=== PATIENT | female | born 1965 | race Asian ===

== ENCOUNTER → 2018-11-29 13:09 | Outpatient (REF) | payer BC, SELFPAY | LOC: LAB 13:09 | PROVIDERS: Visit Provider Family Medicine | DX: R50.9 Fever, unspecified (principal); R05 Cough | CPT/HCPCS: 87400 ==

== ENCOUNTER → 2020-11-23 11:28 | Outpatient (CLI) | payer BC, SELFPAY ==
--- NOTE | 2020-11-23 | DI.RAD.S_ITS ---
PROCEDURE: XR ELBOW LT MIN 3V INDICATIONS: LEFT ELBOW PAIN, TENDONITIS, EPICONDYLE TECHNIQUE: 3 views of the elbow were acquired. COMPARISON: None. FINDINGS: Bones: No fractures or dislocations. No suspicious bony lesions. Soft tissues: No elbow joint effusion. No suspicious soft tissue calcifications. IMPRESSION: No trauma found. Dictated by: Tim Man M.D. on 11/23/2020 at 12:50 Approved by: Tim Man M.D. on 11/23/2020 at 12:50
== END ==
PROVIDERS: PCP Family Medicine; Referring Provider Family Medicine; Visit Provider Family Medicine
DX: M25.522 Pain in left elbow (principal); M77.12 Lateral epicondylitis, left elbow
CPT/HCPCS: 73080

== ENCOUNTER → 2020-12-04 10:47 | Outpatient (CLI) | payer BC, SELFPAY ==
--- NOTE | 2020-12-04 10:50 | DI.MG.S_ITS ---
BILATERAL DIGITAL SCREENING MAMMOGRAM 3D/2D WITH CAD: 12/04/2020 CLINICAL: Routine screening. Comparison is made to exams dated: 01/28/2018 mammogram, 10/10/2016 mammogram, and 12/24/2010 mammogram - [facility]. The tissue of both breasts is extremely dense, which lowers the sensitivity of mammography. Current study was also evaluated with a Computer Aided Detection (CAD) system. No significant masses, calcifications, or other findings are seen in either breast. There has been no significant interval change. IMPRESSION: NEGATIVE There is no mammographic evidence of malignancy. A 1 year screening mammogram is recommended. This exam was interpreted at Station ID: [id number]. NOTE: For mammograms, a report in lay terms will be sent to the patient. Approximately 15% of breast malignancies will not be visualized mammographically. In the management of a palpable breast mass, a negative mammogram must not discourage biopsy of a clinically suspicious lesion. Electronically Signed By: Gustavo Renner acr/penrad:12/04/2020 11:54:02 letter sent: Normal Exam ACR BI-RADS Category 1: Negative [id number]
== END ==
PROVIDERS: PCP Family Medicine; Referring Provider Family Medicine; Visit Provider Family Medicine
DX: Z12.31 Encounter for screening mammogram for malignant neoplasm of breast (principal)
CPT/HCPCS: 77063; 77067

== ENCOUNTER 2021-11-01 19:15 | Observation (INO) | payer BC, SELFPAY ==
[2021-11-01 19:18] VITALS: BP 123/78; PULSE 78; RESP 14; TEMP 36.6; O2SAT 99; BMI 17.2
--- NOTE | 2021-11-01 19:37 | DI.RAD.S_ITS ---
PROCEDURE: XR SOFT TISSUE NECK INDICATIONS: possible esophageal foreign body TECHNIQUE: 2 views of the neck were acquired. COMPARISON: None. FINDINGS: Airway: The airway appears patent. Soft tissues: Prevertebral soft tissues are normal in thickness. The epiglottis and aryepiglottic folds appear normal. No soft tissue gas. Bones: No suspicious bony lesions. Visualized cervical spine is normally aligned. IMPRESSION: No radiopaque foreign body. Dictated by: Neeta Schaffer M.D. on 11/01/2021 at 19:59 Approved by: Neeta Schaffer M.D. on 11/01/2021 at 19:59
--- NOTE | 2021-11-01 20:14 | ED.RECABL ---
HPI - Recheck/Abnormal Lab/Rx General Chief Complaint: Recheck/Abnormal Lab/Rx Stated Complaint: food stuck in throat Time Seen by Provider: 11/01/21 19:37 Source: patient Mode of arrival: Ambulatory History of Present Illness HPI narrative: Female nonsmoker with noncontributory medical history presents with family in the chief complaint of suspicion of an esophageal foreign body. She was eating a meal few hours prior to her arrival and felt some green pepper get stuck in her throat. She has not been able to swallow or keep anything down since. She has vomited a few times but has not cleared the suspected foreign body. She did have some blood-tinged emesis on her last round. She denies any chest pain or shortness of breath. She has had no fever or chills. She is not dizzy nor weak or lightheaded. She denies any history of the same. Related Data Previous Rx's Medication Instructions Recorded [id number] 2 1 spray MUCOUS MEMBRANE .QID prn 11/02/21 %-2 %-14 % (200 mg/sec) topical #20 g spray (Cetacaine) Allergies Allergy/AdvReac Type Severity Reaction Status Date / Time shrimp Allergy Intermediate Anaphylaxis Verified 11/02/21 08:32 Review of Systems Review of Systems Narrative: GENERAL: Denies chills, fatigue, malaise, fever, sweats. HEENT: Denies sinus pain, ear pain, sore throat, difficulty swallowing, dizziness. RESPIRATORY: Denies dyspnea, cough, wheezing, hemoptysis, sputum. CARDIOVASCULAR: Denies chest pain, palpitations, orthopnea, edema, GASTROINTESTINAL: Denies nausea, vomiting, abdominal pain, diarrhea, constipation, melena. : Denies dysuria, frequency, incontinence, hematuria, urinary retention. MUSCULOSKELETAL: denies weakness, joint pain, or bony pain SKIN: Denies rash, skin lesions, or other NEUROLOGIC: Denies weakness, headache, numbness, change in speech, confusion, seizures, incoordination. PSYCHIATRIC: No concerning psychosocial issues. 12 point review of systems is negative except for those stated above Patient History Social History household members: spouse and children Smoking Status: Never smoker alcohol intake: never Smoking Status: Never smoker alcohol intake frequency: 0-2 drinks per day Substance Use Type: does not use Exam Narrative Exam Narrative: GEN: AOx3 and in mild distress EYES: Pupils are equal, round, and reactive to light and accommodation. Extraoccular muscles are intact bilaterally. There is no subconjunctival hemorrhage or exudate. ENT: Airway patent, no obvious foreign body or bleeding CHEST: Lungs are clear to auscultation bilaterally and free of wheezes, rales, or rhonchi. Heart rate is regular rhythm, there are no murmurs, clicks, rubs, or gallops. There is no chest wall tenderness. ABD: Abdomen is soft and nontender. There is no guarding or rebound. Bowel sounds are normal in all 4 quadrants. There is no mass or organomegaly. EXT: Full painless ROM of all extremities with no loss of sensation or strength. SKIN: Warm, pink, and dry. No erythema or rash Initial Vital Signs Initial Vital Signs: Vital Signs Temperature 97.9 F 11/01/21 19:18 Pulse Rate 78 11/01/21 19:18 Respiratory Rate 14 11/01/21 19:18 Blood Pressure 123/78 11/01/21 19:18 Pulse Oximetry 99 11/01/21 19:18 Course Course Course Narrative: Patient given glucagon, closely followed by shobha rudd and immediately began vomiting, at this point a call was placed to general surgery to discuss endoscopy. Patient admitted under their name Orders Ordered: Discontinued Medications Benzocaine (Dermoplast [place] 20% 60 Ml) 1 spray TOP Q30MIN PRN PRN Reason: Pain, Moderate (4-6) Benzocaine/Butamben/Tetracaine HCl (Tetracaine/Benzocaine/Butamben (Cetacaine) Bottle) 1 spray TOP Q30MIN PRN PRN Reason: Sore Throat Last Admin: 11/02/21 01:53 Dose: 1 spray Documented by: MARCELINO Diazepam (Diazepam 10 Mg/2 Ml Syringe) 2 mg IV Q4HR PRN PRN Reason: Anxiety Last Admin: 11/02/21 01:54 Dose: 2 mg Documented by: MARCELINO Fentanyl (Fentanyl 100 Mcg/2 Ml Inj) 0 mcg IV Q5MIN PRN PRN Reason: Pain, Moderate (4-6) Glucagon (Glucagon,Human Recombinant 1 Mg/Ml Vial) 1 mg IV NOW ONE Stop: 11/01/21 19:38 Last Admin: 11/01/21 20:21 Dose: 1 mg Documented by: RLAZANI Lactated Ringer's (Lactated Ringers) 1,000 mls @ 100 mls/hr IV CONT DAVON Last Admin: 11/01/21 23:10 Dose: 100 mls/hr Documented by: RAULT Lactated Ringer's (Lactated Ringers) 1,000 mls @ 84 mls/hr IV CONT DAVON Last Infusion: 11/02/21 09:22 Dose: 84 mls/hr Documented by: Admin: 11/02/21 08:35 Dose: 84 mls/hr Documented by: MATTI Naloxone HCl (Naloxone 0.4 Mg/Ml Vial) 0.2 mg IV Q2MIN PRN PRN Reason: Opiate Reversal Ondansetron HCl (Ondansetron 4 Mg/2 Ml Inj) 4 mg IV NOW ONE Stop: 11/02/21 09:53 Last Admin: 11/02/21 10:16 Dose: 4 mg Documented by: RAVINDRA Reevaluation(s) Reevaluation #1: patient given glucagon and within 60 seconds was given luke warm ivy patricia and almost immediately began vomiting. Vital Signs Vital signs: Vital Signs - 8 hr 11/01/21 19:18 Temperature 97.9 F Pulse Rate 78 Respiratory Rate 14 Blood Pressure 123/78 Pulse Oximetry 99 MDM - Recheck/Abnormal Lab/Rx Lab Data Labs: Lab Results 11/01/21 Range/Units 20:18 SARS-CoV-2 (PCR) Negative (Negative) Imaging Data Soft Tissue Neck: Radiologist's Impression: Merrill Raines??56??F??1965 ? Allergy/Adv: shrimp Close Soft Tissue Neck X-Ray (Signed) Neeta Schaffer - 11/01/21 Mammogram Screening (Signed) Gustavo Renner - 12/04/20 Elbow X-Ray (Signed) Tim Man - 11/23/20 Launch?[address] [address] XRay Report Signed Patient: Merrill Raines MR#: [id number] : 1965 Acct:[id number] Age/Sex: 56 / F Date of Service: 11/01/21 Loc: ED Accession Number: [id number] ?? Procedure: XR soft tissue neck Ordering Provider: Chris Becker D.O. PROCEDURE:? XR SOFT TISSUE NECK ? INDICATIONS:? possible esophageal foreign body ? TECHNIQUE:? 2 views of the neck were acquired.? ? COMPARISON:? None. ? FINDINGS:? ? Airway:? The airway appears patent.? ? Soft tissues:? Prevertebral soft tissues are normal in thickness.? The epiglottis and aryepiglottic folds appear normal.? No soft tissue gas.? ? Bones:? No suspicious bony lesions.? Visualized cervical spine is normally aligned.? ? IMPRESSION:? No radiopaque foreign body. ? ? Dictated by: Neeta Schaffer M.D. on 11/01/2021 at 19:59 ? ? Approved by: Neeta Schaffer M.D. on 11/01/2021 at 19:59 ? ? Discharge Plan Departure Patient Disposition: Admitted as Observation Clinical Impression: Esophageal foreign body Admit Date/Time: 11/01/21 20:41 Admit Provider: Jen Rosa
[2021-11-01] MEDS: GLUCAGON,HUMAN RECOMBINANT 1 MG/ML VIAL IV (20:21)
[2021-11-01 20:46] LABS: COVID19 -Nasal RAPID Negative (Negative)
[2021-11-01 22:07] LABS: COVID19 - ADMIT (NP swab/PCR) Negative (Negative)
[2021-11-01 22:40] VITALS: BP 122/79; PULSE 74; RESP 16; TEMP 36.4; O2SAT 99
[2021-11-01 22:42] VITALS: RESP 18; TEMP 36.4; O2SAT 98; BMI 17.2
[2021-11-01] MEDS: LACTATED RINGERS 1,000 ML 100 ML IV (23:10)
[2021-11-02] MEDS: TETRACAINE/BENZOCAINE/BUTAMBEN (CETACAINE) BOTTLE 1 SPRAY TOP (01:53)
[2021-11-02] MEDS: diazePAM 10 MG/2 ML SYRINGE 2 MG IV (01:54)
[2021-11-02 06:03] VITALS: BP 98/66; PULSE 60; RESP 16; TEMP 36.8; O2SAT 98
[2021-11-02 07:30] VITALS: BP 119/65; PULSE 58; RESP 18; TEMP 36.8; O2SAT 99
--- NOTE | 2021-11-02 08:06 | PM.HP.1 ---
History of Present Illness History of Present Illness Date Patient Seen: 11/02/21 Time Patient Seen: 08:06 Date of Onset of Symptoms: 11/01/21 Chief complaint: food stuck in throat Narrative: Has had sensation of irritation in the throat for a week. Was eating salad yesterday when a pepper got stuck. Can manage her own saliva, otherwise vomits with anything to drink. No h/o reflux. no h/o dysphagia. Patient History Family & Social History Social History: household members spouse,children Prior Living Arrangements House Safety & Behavioral: Feels Safe in Current Yes Environment Been Physically Hurt or No Threatened By a Person Suicidal Ideation Description None Suicide Plan Description No Plan Tobacco & Substance use: Smoking Status Never smoker alcohol intake never alcohol intake frequency 0-2 drinks per day Substance Use Type does not use Meds Home Medications and Allergies Home Medications Medication Instructions Recorded Confirmed Type No Known Home Medications 11/01/21 11/01/21 History Allergies Allergy/AdvReac Type Severity Reaction Status Date / Time shrimp Allergy Intermediate Anaphylaxis Verified 11/01/21 19:21 Review of Systems Review of Systems ROS: Yes All systems reviewed with the patient and are negative except as otherwise documented Exam Vital Signs (past 8 hours): - 11/02/21 06:03 Temperature 98.3 F Pulse Rate 60 Respiratory Rate 16 Blood Pressure 98/66 Pulse Oximetry 98 Oxygen Delivery Method Room Air Const General: cooperative and healthy appearing Nutritional Appearance: thin HENMT Head: normal to inspection, normocephalic and atraumatic Eyes Periorbital: periorbital findings normal Sclera: sclerae normal Neck Neck: trachea midline Chest Chest: normal inspection of the chest Resp Effort & Inspection: normal respiratory effort and able to speak in complete sentences Cardio Rate: regular rate Rhythm: regular rhythm GI Palpation: soft Skin General: no rashes or lesions noted and elasticity normal Neuro General: patient alert and patient oriented x3 Cranial Nerves: hearing normal Cognition: normal cognition Speech: speech normal Extrem General: full ROM Psych Appearance: grossly normal Affect: normal affect Thought Process: normal Judgment: judgment good Objective Labs Labs: Laboratory Results - last 24 hr 11/01/21 11/01/21 20:18 20:43 SARS-CoV-2 (PCR) Negative Negative Assessment & Plan Assessment & Plan narrative: Esophageal foreign body Plan: EGD with removal of foreign body COVID-19 COVID-19 status: Negative Time Spent With Patient Time with patient: 30 to 49 minutes with 50% spent counseling/coordinating care Critical Care time: I spent a total of [] minutes of critical care time on this patient's care today; this time is exclusive of procedural time. Quality VTE Deep Vein Thrombosis/Pulmonary Embolism Present on Admission: No
[2021-11-02 08:31] VITALS: BP 107/73; PULSE 69; RESP 20; TEMP 36.7; O2SAT 98
[2021-11-02] MEDS: LACTATED RINGERS 1,000 ML 84 ML IV (08:35)
--- NOTE | 2021-11-02 08:54 | PM.OP.ENDO ---
Operative Date/Time/Diagnoses Date of procedure: 11/02/21 Time of procedure: 08:54 Pre-op diagnosis: esophageal foreign body Post-op diagnosis: same Procedure & Clinicians Study performed: EGD Same procedure as scheduled: Yes Indications: Esophageal foreign body Surgeon: Jen Rosa Procedure Notes SCOAP/Timeout: Done Procedure in detail: Prep diagnosis: Esophageal foreign body Postop diagnosis: Same Operative procedure: EGD with general. Surgeon: Jody Rosa MD Anesthetic general with ET tube intubation Findings: Mild irritation in the upper esophagus, no foreign body identified. No hiatal hernia. Normal-appearing stomach and duodenum Procedure: Patient is placed in a supine position. Scope was inserted into the esophagus, advanced into the stomach. I identified the pylorus intubated into the duodenum. Insufflation extractions scope including a retroflex have the above findings. Impression: Mild upper esophageal irritation, no foreign body identified. Otherwise normal exam Plan: Restart clear liquids, gargle with warm salt water. No restrictions on eating, no additional medications. Discharge home Complications: none Impression: mild upper esophageal irritation likely post nasal drip. No foreign body found. Post-procedure Follow up: as needed Disposition: PACU
[2021-11-02 09:03] VITALS: BP 119/78; PULSE 72; RESP 18; TEMP 36.6; O2SAT 99
[2021-11-02 09:08] VITALS: BP 112/80; PULSE 75; RESP 18; O2SAT 97
[2021-11-02 09:13] VITALS: BP 115/82; PULSE 72; RESP 18; O2SAT 97
--- NOTE | 2021-11-02 09:36 | PM.DS.1 ---
History of Present Illness History of Present Illness Date Patient Seen: 11/02/21 Time Patient Seen: 09:36 Date of Onset of Symptoms: 11/01/21 Chief complaint: food stuck in throat Narrative: Has had sensation of irritation in the throat for a week. Was eating salad yesterday when a pepper got stuck. Can manage her own saliva, otherwise vomits with anything to drink. No h/o reflux. no h/o dysphagia. Discharge Providers Provider Date of admission: 11/01/21 20:41 Discharge Date: 11/02/21 Primary care physician: Belinda Johnson MD Discharge provider: Jen Rosa MD Summary Hospital Course Discharge Diagnosis: Upper esophageal irritation, no food found in esophagus or stomach. Irritation likely post nasal drip. Hospital Course: IV hydration EGD Status at Discharge Overall status at discharge: patient is progressing back to baseline Time Spent with Patient Time spent: Less than 30 minutes Exam Vital Signs (past 8 hours): - 11/02/21 06:03 11/02/21 07:30 11/02/21 08:31 Temperature 98.3 F 98.3 F 98.1 F Pulse Rate 60 58 L 69 Respiratory Rate 16 18 20 Blood Pressure 98/66 119/65 107/73 Pulse Oximetry 98 99 98 11/02/21 09:03 11/02/21 09:08 11/02/21 09:13 Temperature 98 F Pulse Rate 72 75 72 Respiratory Rate 18 18 18 Blood Pressure 119/78 112/80 115/82 Pulse Oximetry 99 97 97 Oxygen Delivery Method Room Air Oxygen Flow Rate 0 Const General: cooperative and healthy appearing Nutritional Appearance: thin Orientation: alert and oriented x3 HENMI Head: normocephalic and atraumatic Eyes Sclera: sclerae normal Neck Neck: trachea midline Chest Chest: normal inspection of the chest Resp Effort & Inspection: normal respiratory effort and able to speak in complete sentences Cardio Rate: regular rate Rhythm: regular rhythm GI Inspection: normal to inspection Skin General: elasticity normal and turgor normal Neuro General: patient alert and patient oriented x3 Cognition: normal cognition Psych Appearance: grossly normal Judgment: judgment good Objective Labs Labs: Laboratory Results - last 24 hr 11/01/21 11/01/21 20:18 20:43 SARS-CoV-2 (PCR) Negative Negative PFSH Social History household members: spouse and children Smoking Status: Never smoker alcohol intake: never Discharge Assessment & Plan Assessment and Plan Assessment: Upper esophageal irritation, no ulcers. Possible cause being post nasal drip. No food identified in esophagus or stomach. Plan of Treatment: Home with advance diet as tolerated. Warm salt water gargle as needed. No follow up required. Discharge Plan Discharge Plan Patient Disposition: Home Discharge orders & Medications Prescriptions: No Action No Known Home Medications 0RF Follow up/Referrals: Belinda Johnson MD [Primary Care Provider] - Diet/Activity/Treatments Diet: Diet as Tolerated Diet comment: avoid fresh uncooked fruits and veggies for 2 weeks. Activity: no restrictions Discharge Data Primary Care Provider: Belinda Johnson Attending Provider: Jen Rosa VTE Deep Vein Thrombosis/Pulmonary Embolism Present on Admission: No
[2021-11-02] MEDS: ONDANSETRON 4 MG/2 ML INJ IV (10:16)
--- NOTE | 2021-11-02 11:00 | CM.DANOTE ---
DCP: Case recevied, EMR reviewed and checked in with patient. Spouse, Gilberto was at bedside, for patient was downstairs having a surgical procedure. Introduced self and role. Was able to obtain information regarding patient's baseline activity status prior to hospitalization. Patient is a 56 year old female who admitted yesterday evening to the care of the hospitalist team. PCP: Dr. Johnson. Payer: confirmed: [facility] Out of [facility]. Patient came to the hospital via private vehicle secondary to feeling like food was lodged in her throat. Pateint had been vomiting, unable to eat since this occurred. She is here having an EGD today. Met briefly with patient's spouse in the room. Patient is independent at her baseline. Asked him if she had had any swallowing issues before, and he stated, she did not. He and patient both reside here in [place]. P: DCP to continue to follow. Patient should be able to go home when she is deemed medically stable. Lyndsay Stein RN/Aquatics Director Discharge Planning/Care Management CM Discharge Assessment Start: 11/02/21 10:58 Freq: Status: Active Protocol: Document 11/02/21 10:58 (Rec: 11/02/21 11:00 [id number]) Discharge Planning Assessment Assigned Staff Writer Lyndsay Stein RN/Aquatics Director Advance Directives? No History Provided By Patient,Family Member,Medical Record Prior Living Arrangements House Household Members spouse,children Type of transporation used prior to Drives own vehicle admit Independent with ADL's Yes Is patient alert and oriented? Yes Caregiver for Another No Barriers to Discharge No Discharge Plan Home Transportation Arrangement Spouse Referrals Initiated None needed Whiteboard Updated in Patient Room with Yes name and ext. # of Staff Writer Review Status In Process Next Review Type Continued Stay Review
--- NOTE | 2021-11-02 11:36 | PC.NURSE ---
late note: pt got back from pacu. diet as tolerated. she had some sips of water and a dose of zofran per provider order. she refused to eat and is ready for discharge. dc instructions given to patient and . all belongings returned to patient. IV out.
--- NOTE | 2021-11-12 18:36 | PC.NURSE ---
Late entry; LR infusion initiated 11/01 at 2310 stopped with new order 11/02 at 0835. LR infusion initiated 11/02 at 0835 stopped per MD order at 0920.
== END 2021-11-02 11:07 | disposition home or self-care (01) ==
LOC: ED 20:39 → AC 20:42
PROVIDERS: Admitting Provider Surgery; Emergency Provider Emergency Medicine; PCP Family Medicine; Referring Provider Emergency Medicine; Visit Provider Surgery
PROC: 0DJ08ZZ Inspection of Upper Intestinal Tract, Via Natural or Artificial Opening Endoscopic (ICD-10-PCS; CPT 43235; principal; 2021-11-02 08:45)
DX: K22.89 Other specified disease of esophagus (principal); Z20.822 Contact with and (suspected) exposure to COVID-19
CPT/HCPCS: 43235; 70360; 87635; 96361; 96374; 96375; 99218; 99284; C9803; G0378; J0330; J1610; J2250; J2405; J2704; J3360

== ENCOUNTER → 2024-11-28 12:24 | Outpatient (ROUT) | payer BC, SELFPAY | PROVIDERS: PCP Family Medicine; Visit Provider Family Medicine | DX: J02.9 Acute pharyngitis, unspecified (principal) | CPT/HCPCS: 87070 ==

== ENCOUNTER → 2024-12-14 16:25 | Outpatient (CLI) | payer BC, SELFPAY ==
--- NOTE | 2024-12-14 16:26 | DI.MG.S_ITS ---
BILATERAL DIGITAL SCREENING MAMMOGRAM 3D/2D WITH CAD: 12/14/2024 CLINICAL: Routine screening. Comparison is made to exams dated: 12/04/2020 mammogram, 01/28/2018 mammogram, and 10/10/2016 mammogram - [facility]. The breasts are extremely dense, which lowers the sensitivity of mammography (category d />75% glandular tissue). Current study was also evaluated with a Computer Aided Detection (CAD) system. No significant masses, calcifications, or other findings are seen in either breast. There has been no significant interval change. IMPRESSION: NEGATIVE There is no mammographic evidence of malignancy. A 1 year screening mammogram is recommended. Based on the Tyrer Cuzick model (a risk assessment model) the patient's lifetime risk is 17.0% and her 10 year risk is 6.4%. According to the ACR, ACS, and NCCN guidelines, an annual breast MRI exam along with mammogram is recommended if the patient's lifetime risk is 20% or greater. This exam was interpreted at Station ID: [id number]. NOTE: For mammograms, a report in lay terms will be sent to the patient. Approximately 15% of breast malignancies will not be visualized mammographically. In the management of a palpable breast mass, a negative mammogram must not discourage biopsy of a clinically suspicious lesion. Electronically Signed By: Jose Raul parham/tyrone:12/15/2024 13:56:36 letter sent: Normal Exam ACR BI-RADS Category 1: Negative
== END ==
PROVIDERS: PCP Family Medicine; Referring Provider Family Medicine; Visit Provider Family Medicine
DX: Z12.31 Encounter for screening mammogram for malignant neoplasm of breast (principal); R92.343 Mammographic extreme density, bilateral breasts
CPT/HCPCS: 77063; 77067